=== PATIENT | male | born 1955 | race Caucasian/White ===

== ENCOUNTER 2016-12-06 06:43 | Day surgery (SDC) ==
[2016-11-30 14:13] LABS: URINE MICRO REVIEW NEEDED? NO; URINE SOURCE CLEAN CATCH
[2016-11-30 14:14] LABS: MANUAL DIFF NEEDED? NO
[2016-11-30 14:19] LABS: BILIRUBIN URINE NEGATIVE (NEGATIVE); BLOOD URINE NEGATIVE (NEGATIVE); COLOR YELLOW; GLUCOSE URINE NEGATIVE (NEGATIVE); LEUKOCYTES URINE NEGATIVE (NEGATIVE); NITRITE URINE NEGATIVE (NEGATIVE); PROTEIN URINE NEGATIVE (NEGATIVE); SP GRAVITY URINE 1.021; TURBIDITY URINE CLEAR (CLEAR); UR EPITHELIAL CELLS <10 /HPF (<10); URINE BACTERIA NEGATIVE /HPF; URINE RBC <10 /HPF (<10); URINE WBC <10 /HPF (<10); UROBILINOGEN URINE NORMAL (NORMAL)
[2016-11-30 14:27] LABS: BASO% 0.4 % (0.0-0.8); EOS# 0.07 X1000 (0.0-0.7); EOS% 0.5 % (0.0-10.0); HEMATOCRIT 49.7 % (42.0-52.0); IMM GRAN# 0.04 X1000 (0.0-0.04); IMM GRAN% 0.3 % (0.0-0.5); LYMPH# 3.67 X1000 (1.2-3.4); LYMPH% 26.6 % (20.5-51.1); MCH 33.3 PG (27-31); MCHC 34.2 g/dL (33-37); MCV 97.3 FL (81-99); MONO# 1.01 X1000 (0.11-0.59); MONO% 7.3 % (1.7-9.3); MPV 11.3 FL (7.4-10.4); NEUT% 64.9 % (42.2-75.2); PLT 194 X1000 (130-400); RBC 5.11 XMIL (4.7-6.1)
--- NOTE | 2016-11-30 14:40 | Diag Imaging Result Document ---
PROCEDURE NAME: CHEST-2 VIEWS - 11/30/2016 FRONTAL AND LATERAL CHEST, TWO VIEWS: FINDINGS: The lungs are well expanded. The heart is not enlarged. The vessels are not distended. No pleural effusions. No pneumonia. I believe there is a small left pericardial fat pad. IMPRESSION: No acute abnormality.
[2016-11-30 14:57] LABS: AGAP 14; ALBUMIN 4.6 g/dL (3.5-5.0); ALKALINE PHOSPHATASE 89 U/L (32-122); BUN 13 mg/dL (8-22); CALCIUM 9.8 mg/dL (8.8-10.2); CHLORIDE 101 mmol/L (98-107); COSMO 277; GOT 20 U/L (10-34); GPT 23 U/L (10-44); POTASSIUM 4.4 mmol/L (3.5-5.1); SODIUM 139 mmol/L (136-145); TCO2 24 mmol/L (25-35); TOTAL BILIRUBIN 0.59 mg/dL (0.20-1.00); TOTAL PROTEIN 7.6 g/dL (6.3-8.3)
--- NOTE | 2016-12-01 07:27 | EKG Report ---
Test Performed on : 11/30/2016 2:06:19 PM Test Reason : PAT Blood Pressure : / mmHG Vent. Rate : 073 BPM Atrial Rate : 073 BPM P-R Int : 130 ms QRS Dur : 090 ms QT Int : 392 ms P-R-T Axes : 069 065 061 degrees QTc Int : 431 ms Normal sinus rhythm. Normal ECG No previous ECGs available Confirmed by Clayton Larry MD ([id number]) on 12/02/2016 10:03:03 PM
[2016-12-06] MEDS ORDERED: REGLAN ONE (07:07)
[2016-12-06] MEDS ORDERED: KEFZOL 1 GM/D5W 50 ML ONE (07:07)
[2016-12-06] MEDS ORDERED: PEPCID ONE (07:07)
[2016-12-06] MEDS ORDERED: LR 1,000 ML ONE (07:07)
[2016-12-06] MEDS ORDERED: MURI-LUBE MINERAL OIL ONE (08:54)
[2016-12-06] MEDS ORDERED: XYLOCAINE 1%/EPI 1:100,000 ONE (08:54)
[2016-12-06] MEDS ORDERED: MARCAINE 0.25% PF/EPI 1:200,000 ONE (08:54)
[2016-12-06] MEDS ORDERED: DIPRIVAN 1% ONE (10:01)
[2016-12-06] MEDS ORDERED: FENTANYL ONE (10:02)
[2016-12-06] MEDS: MORPHINE ONE ×2 (10:12→10:17)
[2016-12-06] MEDS ORDERED: TORADOL ONE (10:14)
[2016-12-06] MEDS ORDERED: ZOFRAN ONE (10:14)
[2016-12-06] MEDS ORDERED: XYLOCAINE-MPF 2% ONE (10:14)
[2016-12-06] MEDS ORDERED: DECADRON ONE (10:14)
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
[2016-12-06] MEDS ORDERED: NORCO-10 ONE (10:46)
[2016-12-06 12:17] VITALS: BP 116/84
== END 2016-12-06 12:25 | disposition home or self-care (01) ==
LOC: OPS 06:43
PROVIDERS: ATTEND Surgery
DX: C44.612 Basal cell carcinoma of skin of right upper limb, including shoulder (principal); L90.5 Scar conditions and fibrosis of skin; L98.8 Other specified disorders of the skin and subcutaneous tissue; Z93.2 Ileostomy status; K21.9 Gastro-esophageal reflux disease without esophagitis; Z86.010 Personal history of colon polyps; Z85.038 Personal history of other malignant neoplasm of large intestine; Z80.9 Family history of malignant neoplasm, unspecified; F17.210 Nicotine dependence, cigarettes, uncomplicated; T22.051A Burn of unspecified degree of right shoulder, initial encounter
CPT/HCPCS: 71020; 80053; 81001; 85025; 88304; 88313; 93005; 93010; J0690; J1100; J1885; J2270; J2405; J3010; J7120